=== PATIENT | female | born 1955 | race Caucasian/White ===

== ENCOUNTER 2018-08-27 06:46 | Day surgery (SDC) | payer OTHER ==
[~2018-08-27] VITALS: Ht 168.9 cm; Wt 66.7 kg
[~2018-08-27 06:46] MED LIST: CYCLOPENTOLATE HCL 1% OPHTH DROPS 2ML RIGHTEYE ONE; PHENYLEPHRINE HCL 10% OPHTH DROPS 5ML RIGHTEYE ONE; TROPICAMIDE 1% OPHTH DROPS 15ML RIGHTEYE SCH
[2018-08-27] MEDS ORDERED: LACTATED RINGERS 1,000 ML IV SCH (08:00)
[2018-08-27] MEDS ORDERED: PROPOFOL 200MG/20ML VIAL IV ONE (08:59)
[2018-08-27] MEDS ORDERED: MIDAZOLAM HCL 2 MG/2 ML VIAL ONE ×2 (09:00→09:26)
[2018-08-27] MEDS ORDERED: BALANCED SALT IRRIG SOLN COMB1 500ML OP SCH (09:00)
[2018-08-27] MEDS ORDERED: LIDOCAINE HCL/PF 1% 10 MG/ML 5ML VIAL ONE (09:01)
[2018-08-27] MEDS ORDERED: HYALURONATE SODIUM 14 MG/ML 0.85ML SYRINGE IO ONE ×2 (09:17→10:13)
[2018-08-27] MEDS ORDERED: TRYPAN BLUE 0.5 ML DISP.SYRIN IO ONE (09:17)
[2018-08-27] MEDS ORDERED: SODIUM CHLORIDE 0.9% 1,000 ML IV ONE (10:14)
[2018-08-27] MEDS ORDERED: ONDANSETRON HCL 4MG/2ML INJ ONE (10:15)
[2018-08-27] MEDS ORDERED: ONDANSETRON HCL 4MG/2ML INJ IV PRN (10:15)
[2018-08-27] MEDS ORDERED: METOCLOPRAMIDE HCL 10MG/2ML VIAL ONE (10:15)
[2018-08-27] MEDS ORDERED: HYDROMORPHONE HCL/PF 2MG/ML CPJ IV PRN (10:15)
[2018-08-27] MEDS ORDERED: MEPERIDINE HCL/PF 25MG/ML CPJ IV PRN (10:15)
[2018-08-27] MEDS ORDERED: ACETAMINOPHEN 325MG TABLET PO SCH (10:15)
[2018-08-27] MEDS ORDERED: BUPIVACAINE HCL/PF 0.75% (7.5MG/ML) 10ML ONE (13:52)
[2018-08-27] MEDS ORDERED: BALANCED SALT IRRIG SOLN 15ML ONE (13:52)
[2018-08-27] MEDS ORDERED: NEO/POLYMYX B SULF/DEXAMETH OPHTH OINT 3.5GM ONE (13:52)
[2018-08-27] MEDS ORDERED: CIPROFLOXACIN 0.3% OPHTH SOLN 2.5ML ONE (13:52)
[2018-08-27] MEDS ORDERED: LIDOCAINE HCL/PF 2% 20 MG/ML 10ML VIAL ONE (13:52)
[2018-08-27] MEDS ORDERED: PHENYLEPHRINE HCL 10% OPHTH DROPS 5ML ONE (13:52)
[2018-08-27] MEDS ORDERED: PREDNISOLONE ACETATE 1% OPHTH DROPS 1ML ONE (13:52)
[2018-08-27] MEDS ORDERED: LIDOCAINE HCL 2%/EPINEPHRINE 1:100,000 20 ML VIAL INFIL ONE (13:52)
== END 2018-08-27 11:40 | disposition home or self-care (01) ==
LOC: OR 06:46
PROVIDERS: ATTEND Ophthalmology
DX: H25.21 Age-related cataract, morgagnian type, right eye (principal); Z87.891 Personal history of nicotine dependence; K21.9 Gastro-esophageal reflux disease without esophagitis
CPT/HCPCS: 66982; J2250; J2405; J2765; J3490; Q9957; V2632; J2704